=== PATIENT | female | born 2005 | race Caucasian/White ===

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

== ENCOUNTER 2025-01-18 14:21 | Inpatient (IN) | payer OTHER ==
[2025-01-18 15:39] LABS: Basophils # (A) 0.06 10*3/uL (0.00-0.10); Basophils % (A) 0.4 %; Eosinophils # (A) 0.14 10*3/uL (0.04-0.35); Eosinophils % (A) 0.9 %; HCT 31.8 % (37.2-46.3); HGB 10.7 g/dL (12.0-15.0); Immature Platelet Fraction 4.1 % (1.1-6.1); Lymphocytes # (A) 1.04 10*3/uL (0.90-5.00); Lymphocytes % (A) 6.8 %; MCH 29.6 pg (27.0-32.0); MCHC 33.6 g/dL (32.0-37.0); MCV 87.8 fL (80.0-97.0); Mean Platelet Volume 9.9 fL (9.5-12.2); Monocytes # (A) 1.34 10*3/uL (0.20-1.00); Monocytes % (A) 8.8 %; Neutrophils % (A) 82.1 %; Platelet Count 123 10*3/uL (140-440); RBC 3.62 10*6/uL (4.10-5.20); RDW 14.3 % (11.5-14.5); WBC 15.23 10*3/uL (4.50-10.00)
[2025-01-18 15:41] LABS: ALT 86 U/L (4-34); AST 165 U/L (14-36); African American GFR (CKD) >90 (>60 ml/min/1.73 sqM); Blood Urea Nitrogen 11 mg/dL (7-17); LDH 429 U/L (120-246); Non-African American GFR(CKD) >90 (>60 ml/min/1.73 sqM); Uric Acid 5.2 mg/dL (3.7-7.4)
[2025-01-18 15:56] LABS: Creatinine,Urine Random 139.5 mg/dL; Protein/Creatinine Ratio,Urine 0.115
[2025-01-18 15:58] LABS: Amorphous Sediment,Urine Occasional /hpf; Appearance,Urine Cloudy (Clear); Bacteria,Urine Rare /hpf; Bilirubin,Urine Negative (Negative); Blood,Urine Large (Negative); Color,Urine Yellow; Glucose,Urine (UA) Negative (Negative); Ketones,Urine Negative (Negative); Leukocyte Esterase,Urine Small (Negative); Mucus,Urine Occasional /hpf; Nitrite,Urine Negative (Negative); Protein,Urine 1+ (Negative); RBC,Urine >182 /hpf (0-5); Specific Gravity,Urine 1.021 (1.001-1.035); Squamous Epithelial Cell,Urine 7 /hpf (0-4); Urobilinogen,Urine <2.0 mg/dL (<2.0); WBC,Urine 11 /hpf (0-5)
[2025-01-18] MEDS ORDERED: TRANEXAMIC 1,000 MG/100ML-NACL 1,000 MG in EMPTY BAG 1 BAG IV PRN (16:07)
[2025-01-18] MEDS ORDERED: miSOPROStoL 200 MCG TAB PO PRN (16:07)
[2025-01-18] MEDS ORDERED: OXYTOCIN 10 UNIT/ML 1 ML VIAL IM PRN (16:07)
[2025-01-18] MEDS ORDERED: miSOPROStoL 200 MCG TAB RECTAL PRN (16:07)
[2025-01-18] MEDS ORDERED: CARBOPROST TROMETHAMINE 250 MCG/ML 1 ML AMP IM PRN (16:07)
[2025-01-18] MEDS ORDERED: METHYLERGONOVINE 0.2 MG/ML 1 ML AMP IM PRN (16:07)
[2025-01-18] MEDS ORDERED: TERBUTALINE 1 MG/ML VIAL SQ PRN (16:07)
[2025-01-18] MEDS ORDERED: NALBUPHINE 10 MG/ML (10 ML MDV) IV PRN (16:33)
[2025-01-18] MEDS: LACTATED RINGERS 1,000 ML IV SCH (16:35)
[2025-01-18] MEDS ORDERED: hydrALAZINE HCL 20 MG/ML 1 ML VIAL IVP PRN (16:42)
[2025-01-18] MEDS ORDERED: CALCIUM GLUCONATE 1 GM/10 ML VIAL IV PRN (16:42)
[2025-01-18] MEDS ORDERED: LABETALOL 5 MG/ML VIAL MDV IVP PRN ×3 (16:42)
[2025-01-18] MEDS: OXYTOCIN 30 UNITS/500 ML NS 30 UNIT in SALINE 1 500ML.BAG IV SCH (16:45)
[2025-01-18 16:54] LABS: INR 0.9 (<1.2); Partial Thromboplastin Time 23.5 sec (22.0-30.0); Prothrombin Time 9.8 sec (10.0-12.5)
[2025-01-18 16:58] LABS: Amphetamine Screen,Urine Not Detected (NotDetected); Barbiturate Screen,Urine Not Detected (NotDetected); Benzodiazepines Screen,Urine Not Detected (NotDetected); Cocaine Screen,Urine Not Detected (NotDetected); Methadone Screen, Urine Not Detected (NotDetected); Opiate Screen,Urine Not Detected (NotDetected); Oxycodone Screen, Urine Not Detected (NotDetected); Phencyclidine Screen,Urine Not Detected (NotDetected); Tricyclic Antidepressant,Urine Not Detected (NotDetected); Urn Cannabinoid Scrn Not Detected (NotDetected)
[2025-01-18] MEDS: MAGNESIUM SULFATE-WATER PMX 4 GM in WATER FOR INJECTION 1 100ML.BAG IVPB ONE (16:59)
[2025-01-18] MEDS: MAGNESIUM SULFATE-WATER PMX 20 GM in WATER FOR INJECTION 1 500ML.BAG IV SCH (17:23)
[2025-01-18] MEDS ORDERED: ROPIVACAINE 5 MG/ML 30 ML VIAL ONE (17:45)
[2025-01-18] MEDS ORDERED: SODIUM CHLORIDE 0.9% 250 ML BAG ONE (17:45)
[2025-01-18] MEDS ORDERED: fentaNYL (PF) 50 MCG/ML 5 ML AMP ONE (17:45)
--- NOTE | 2025-01-19 00:27 | P.MSEPDOC ---
Presenting Problems - Arrival Data Date of Arrival on Unit: 01/18/25 Time of Arrival on Unit: 14:21 Mode of Transport: Ambulatory - Complaint OB-Reason for Admission/Chief Complaint: Pain Comment: right upper quad pain and nausea Medical History - Information : 1 Para: 0 Term: 0 : 0 Abortions: Spontaneous or Elective: 0 Number of Living Children: 0 - Gestational Age Gestational Age by CHAITANYA (wks/days): 39 Weeks and 0 Days Review of Systems - Review of Systems Constitutional: No problems Breast: No problems ENT: No problems Cardiovascular: No problems Respiratory: No problems Gastrointestinal: No problems Genitourinary: No problems Musculoskeletal: No problems Neurological: No problems Skin: No problems Vital Signs - Temperature Temperature: 97.8 F Temperature Source: Temporal Artery Scan - Pulse Pulse Oximetery Pulse Rate: 101 Pulse Assessment Method: Pulse Oximetry - Respirations Respiratory Rate: 16 Oxygen Delivery Method: Room Air O2 Sat by Pulse Oximetry: 100 - Blood Pressure Right Arm Blood Pressure: 111/57 Blood Pressure Mean: 75 Blood Pressure Source: Automatic Cuff Medical Screen Scoring - Cervical Exam Dilation (cm): 3 Effacement (%): 50 Station: -2 Membranes: Intact - Uterine Contractions Frequency From (mins): 5 Frequency To (mins): 10 Duration From (seconds): 70 Duration To (seconds): 90 Intensity: Mild Resting: Soft to palpation - Assessment - Baby A Baseline FHR: 135 Heart Rate - NICHD Category: Category I (Normal) NST: Reactive Physician Notification - Physician Notified Physician Notified Date: 01/18/25 Physician Notified Time: 15:06 Physician: Chiquis Loyola New Order Received: Yes (admit) Maternal Triage Index - Maternal Triage Index Presenting for scheduled procedure w/no complaint: No - Stat/Priority 1 Stat Priority 1: No - Urgent/Priority 2 Urgent Priority 2: Yes Provider Notified: Chiquis Loyola Provider Notified Time: 15:06 Criteria Met for Priority 2: BP 130/90's presents for epigastric pain and nausea Disposition - Disposition OB Disposition: Admit Transferred to:: 10 I agree with the RN Medical Screening Exam: Yes Case reviewed; plan agreed upon as documented in EMR&OBIX.: Yes Diagnosis: RELATED CONDITIONS, UNSPECIFIED, THIRD TRIMESTER
[2025-01-19] MEDS ORDERED: HYDROCORTISONE 2.5% RECTAL CREAM 30 GM TUBE RECTAL PRN (02:33)
[2025-01-19] MEDS ORDERED: diphenhydrAMINE 50 MG/ML 1 ML VIAL IVP PRN ×2 (02:33)
[2025-01-19] MEDS ORDERED: LANOLIN CREAM 1 GM TUBE TOPICAL PRN (02:33)
[2025-01-19] MEDS ORDERED: ZOLPIDEM 5 MG TAB PO PRN (02:33)
[2025-01-19] MEDS ORDERED: diphenhydrAMINE 25 MG CAP PO PRN (02:33)
[2025-01-19] MEDS ORDERED: diphenhydrAMINE 50 MG CAP PO PRN (02:33)
--- NOTE | 2025-01-19 02:37 | P.PROBDLV ---
Vaginal Delivery Note - . Vaginal Delivery Note: 19-year-old 1 para 0 that presented to labor and delivery at 39 0/7 weeks with complaints of epigastric pain. Patient was diagnosed with preeclampsia, help syndrome in triage after elevated liver function tests were appreciated platelets slightly low at 123. Blood pressures 130s over 90s. Patient was admitted to labor and delivery and Pitocin augmentation of labor was begun. Amniotomy was performed with copious clear fluid was obtained. Patient made good progress in labor eventually requesting epidural. Patient progressed to complete began pushing and had a normal spontaneous vaginal delivery of a viable male at 220, weight of 6 pounds 11 ounces. Apgars of 8 and 9 at 1 and 5 minutes respectively. Umbilical cord was doubly clamped and cut placenta was delivered spontaneously intact with a three-vessel cord being noted. On inspection of the patient's vaginal vault second-degree midline laceration was appreciated and repaired in the usual fashion with 3-0 Rapide. After closure hemostasis was appreciated. Uterus was noted to be firm below the umbilicus. All counts were noted be correct x 2 at the end of the delivery. Patient and tolerated delivery well and are resting comfortably. Minimal urine output was noted during pushing as Maurice remains in place, 500 cc bolus of LR was initiated, repeat preeclampsia labs at 5 AM.
--- NOTE | 2025-01-19 02:38 | P.HPOB ---
History of Present Illness H&P Date: 01/18/25 Chief Complaint: IUP at 39-0/7 weeks, preeclampsia, help syndrome 19-year-old 1 para 0 at 39-0/7 weeks that presented to labor and delivery this afternoon with complaints of epigastric pain. Patient denied headache. slightly elevated blood pressures were appreciated 130s over 90s. Preeclampsia labs were completed with noted elevation of liver function test. A ST 165, ALT 86. patient does note good movements, denies vaginal bleeding, loss of fluid, occasional contractions are appreciated. Patient has been receiving routine care which has been essentially uncomplicated, no elevated blood pressures have been appreciated thus far in the . On blood work this patient is a blood type of O+, rubella status immune, hepatitis B surface antigen negative, HIV negative, hepatitis C negative, RPR nonreactive, group beta strep culture negative. Review of Systems Constitutional: Denies chills, Denies fatigue, Denies fever Ears, nose, mouth and throat: Denies headache Cardiovascular: Denies edema Respiratory: Denies dyspnea Gastrointestinal: Reports as per HPI Genitourinary: Reports Past Medical History History of Any Multi-Drug Resistant Organisms: None Reported Smoking Status: Former smoker - Past Family History Mother Additional Family Medical History / Comment(s): factor 5 Medications and Allergies Home Medications Medication Instructions Recorded Confirmed Type Vit No.179/Iron/Folic 1 tab PO DAILY 01/18/25 01/18/25 History [ Tablet] Allergies Allergy/AdvReac Type Severity Reaction Status Date / Time No Known Allergies Allergy Verified 01/18/25 14:52 Exam Osteopathic Statement: *. No significant issues noted on an osteopathic structural exam other than those noted in the History and Physical/Consult. Intake and Output 01/18/25 01/18/25 01/18/25 06:59 14:59 22:59 Other: Weight 85.729 kg Targeted physical exam is performed in general this is a well-nourished well- developed female in no acute distress, patient resting comfortably and laughing in bed. Breathing appears nonlabored, abdomen is gravid, cervical exam is heart tones are noted to be category 1 and she is mratha every 2 to 4 minutes Results Result Diagrams: 01/18/25 15:17 01/18/25 15:17 Abnormal Lab Results - Last 24 Hours (Table) 01/18/25 01/18/25 01/18/25 Range/Units 15:11 15:17 15:17 WBC 15.23 H (4.50-10.00) 10*3/uL RBC 3.62 L (4.10-5.20) 10*6/uL Hgb 10.7 L (12.0-15.0) g/dL Hct 31.8 L (37.2-46.3) % Plt Count 123 L (140-440) 10*3/uL Immature Gran # 0.15 H (0.00-0.04) 10*3/uL Neutrophils # 12.50 H (1.80-7.70) 10*3/uL Monocytes # 1.34 H (0.20-1.00) 10*3/uL AST 165 H (14-36) U/L ALT 86 H (4-34) U/L Lactate Dehydrogenase 429 H (120-246) U/L Urine Appearance Cloudy H (Clear) Urine Protein 1+ H (Negative) Urine Blood Large H (Negative) Ur Leukocyte Esterase Small H (Negative) Urine RBC >182 H (0-5) /hpf Urine WBC 11 H (0-5) /hpf Ur Squamous Epith Cells 7 H (0-4) /hpf Amorphous Sediment Occasional H (None) /hpf Urine Bacteria Rare H (None) /hpf Urine Mucus Occasional H (None) /hpf Assessment and Plan (1) Term Current Visit: Yes Status: Acute Code(s): Z34.90 - ENCNTR FOR SUPRVSN OF NORMAL , UNSP, UNSP TRIMESTER SNOMED Code(s): 01922761 (2) Preeclampsia Current Visit: Yes Status: Acute Code(s): O14.90 - UNSPECIFIED PRE- ECLAMPSIA, UNSPECIFIED TRIMESTER SNOMED Code(s): 486732045 (3) HELLP syndrome Current Visit: Yes Status: Acute Code(s): O14.20 - HELLP SYNDROME (HELLP), UNSPECIFIED TRIMESTER SNOMED Code(s): 29212549 Plan: Admit to labor and delivery Magnesium GTT 4 g bolus followed by 2 g maintenance, Maurice to be placed to gravity Amniotomy/Pitocin for augmentation of labor N.p.o. Options for analgesia discussed Nubain, nitrous, epidural when appropriate, platelets 123
[2025-01-19] MEDS: BENZOCAINE/MENTHOL SPRAY 1 GM/SPRAY AEROSOL TOPICAL PRN (02:47)
[2025-01-19] MEDS: LIDOCAINE 0.5% (PF) 5 MG/ML (50 ML SDV) SQ PRN (02:48)
[2025-01-19] MEDS: IBUPROFEN 800 MG TAB PO SCH (04:03)
[2025-01-19] MEDS: ACETAMINOPHEN TAB 500 MG TAB PO SCH (04:04)
[2025-01-19 06:20] LABS: INR 0.8 (<1.2); Partial Thromboplastin Time 24.5 sec (22.0-30.0); Prothrombin Time 9.6 sec (10.0-12.5)
[2025-01-19 06:23] LABS: AST 147 U/L (14-36); African American GFR (CKD) >90 (>60 ml/min/1.73 sqM); Blood Urea Nitrogen 9 mg/dL (7-17); Non-African American GFR(CKD) >90 (>60 ml/min/1.73 sqM); Uric Acid 5.3 mg/dL (3.7-7.4)
[2025-01-19 06:30] LABS: ALT 89 U/L (4-34)
[2025-01-19 07:24] LABS: Basophils # (A) 0.08 10*3/uL (0.00-0.10); Basophils % (A) 0.5 %; Eosinophils # (A) 0.07 10*3/uL (0.04-0.35); Eosinophils % (A) 0.4 %; HCT 29.5 % (37.2-46.3); HGB 9.8 g/dL (12.0-15.0); Lymphocytes # (A) 1.21 10*3/uL (0.90-5.00); Lymphocytes % (A) 7.5 %; MCH 29.2 pg (27.0-32.0); MCHC 33.2 g/dL (32.0-37.0); MCV 87.8 fL (80.0-97.0); Mean Platelet Volume 10.3 fL (9.5-12.2); Monocytes # (A) 1.18 10*3/uL (0.20-1.00); Monocytes % (A) 7.3 %; Neutrophils # (A) 13.29 10*3/uL (1.80-7.70); Neutrophils % (A) 82.7 %; Platelet Count 92 10*3/uL (140-440); RBC 3.36 10*6/uL (4.10-5.20); RDW 14.7 % (11.5-14.5); WBC 16.09 10*3/uL (4.50-10.00)
[2025-01-19] MEDS: PRENATAL VIT-IRON-FOLIC ACID 1 EACH TABLET PO SCH (08:08)
[2025-01-19] MEDS: SENNOSIDES-DOCUSATE SODIUM 1 EACH TAB PO SCH (08:08)
--- NOTE | 2025-01-19 12:05 | P.PNOBGVD ---
Subjective - Subjective Principal diagnosis: day 0, preeclampsia, hellp syndrome Interval history: Patient is doing well overall. Maurice catheter remains, draining clear yellow urine. Patient states pain is well-controlled, lochia is noted to be minimal to moderate. Labs reviewed this morning liver function tests noted to be stable/decreasing, platelets did decrease from 123-98. Patient reports: Reports appetite normal, Reports pain well controlled [place]: doing well Objective - Latest Vital Signs Latest vital signs: Vital Signs Temp Pulse Resp BP Pulse Ox 01/19/25 11:00 93 16 121/86 97 01/19/25 10:00 99 15 129/84 99 01/19/25 09:00 104 H 16 136/90 01/19/25 08:00 97.0 F L 115 H 16 133/89 98 01/19/25 07:00 115 H 18 146/93 99 01/19/25 06:00 111 H 18 136/94 97 01/19/25 04:59 95 18 142/87 100 01/19/25 04:31 97 18 146/96 98 01/19/25 04:16 104 H 16 149/99 97 01/19/25 04:01 100 16 145/93 98 01/19/25 03:46 101 H 18 137/88 98 01/19/25 03:31 97 18 137/85 99 01/19/25 03:16 99 16 148/98 100 01/19/25 03:01 102 H 16 137/87 100 01/19/25 02:46 105 H 18 130/82 100 01/19/25 02:31 98.2 F 106 H 16 136/80 99 01/19/25 02:00 111 H 16 123/82 97 01/19/25 01:00 109 H 16 127/76 99 01/19/25 00:27 97.8 F 101 H 16 111/57 100 01/19/25 00:00 127 H 16 124/90 100 01/18/25 23:00 97.8 F 101 H 16 111/57 100 01/18/25 22:00 110 H 16 118/77 97 01/18/25 21:00 115 H 16 121/69 98 01/18/25 20:00 91 16 120/69 01/18/25 19:27 93 115/68 01/18/25 18:27 96 128/78 01/18/25 17:57 94 130/81 01/18/25 17:27 95 126/72 01/18/25 17:12 94 16 138/85 01/18/25 16:57 106 H 18 137/84 01/18/25 16:42 112 H 18 148/83 01/18/25 16:23 98.4 F 98 16 128/94 98 01/18/25 14:52 98.4 F 98 16 128/94 98 Intake and Output 01/18/25 01/19/25 01/19/25 22:59 06:59 14:59 Intake Total 1386.267 300 Output Total 205 660 500 Balance -205 726.267 -200 Intake: Intake, IV Titration 1186.267 300 Amount Lactated Ringers 1,000 ml 500 300 @ 125 mls/hr IV .Q8H SAÚL Rx#:[id number] Magnesium Sulfate-Water 500 Pmx 20 gm In Water For Injection 1 500ml.bag @ 2 GM/HR 50 mls/hr IV .Q10H SAÚL Rx#:[id number] Oxytocin 30 Units/500 ml 186.267 Ns 30 unit In Saline 1 500ml.bag @ Per Protocol IV .Q0M SAÚL Rx#:[id number] Oral 200 Output: Urine 205 520 500 Output, Quantitative 140 Blood Loss Other: Voiding Method Indwelling Catheter Indwelling Catheter Weight 85.729 kg - Exam Lungs: bilateral: normal Extremities: Present: normal, edema Abdomen: Present: normal appearance, soft Uterus: Present: normal, firm - Labs Labs: Abnormal Lab Results - Last 24 Hours (Table) 01/18/25 01/18/25 01/18/25 Range/Units 15:11 15:17 15:17 WBC 15.23 H (4.50-10.00) 10*3/uL RBC 3.62 L (4.10-5.20) 10*6/uL Hgb 10.7 L (12.0-15.0) g/dL Hct 31.8 L (37.2-46.3) % Plt Count 123 L (140-440) 10*3/uL Immature Gran # 0.15 H (0.00-0.04) 10*3/uL Neutrophils # 12.50 H (1.80-7.70) 10*3/uL Monocytes # 1.34 H (0.20-1.00) 10*3/uL PT (10.0-12.5) sec AST 165 H (14-36) U/L ALT 86 H (4-34) U/L Lactate Dehydrogenase 429 H (120-246) U/L Urine Appearance Cloudy H (Clear) Urine Protein 1+ H (Negative) Urine Blood Large H (Negative) Ur Leukocyte Esterase Small H (Negative) Urine RBC >182 H (0-5) /hpf Urine WBC 11 H (0-5) /hpf Ur Squamous Epith Cells 7 H (0-4) /hpf Amorphous Sediment Occasional H (None) /hpf Urine Bacteria Rare H (None) /hpf Urine Mucus Occasional H (None) /hpf 01/18/25 01/19/25 01/19/25 Range/Units 16:30 05:41 05:46 WBC (4.50-10.00) 10*3/uL RBC (4.10-5.20) 10*6/uL Hgb (12.0-15.0) g/dL Hct (37.2-46.3) % Plt Count (140-440) 10*3/uL Immature Gran # (0.00-0.04) 10*3/uL Neutrophils # (1.80-7.70) 10*3/uL Monocytes # (0.20-1.00) 10*3/uL PT 9.8 L 9.6 L (10.0-12.5) sec AST 147 H (14-36) U/L ALT 89 H (4-34) U/L Lactate Dehydrogenase (120-246) U/L Urine Appearance (Clear) Urine Protein (Negative) Urine Blood (Negative) Ur Leukocyte Esterase (Negative) Urine RBC (0-5) /hpf Urine WBC (0-5) /hpf Ur Squamous Epith Cells (0-4) /hpf Amorphous Sediment (None) /hpf Urine Bacteria (None) /hpf Urine Mucus (None) /hpf 01/19/25 Range/Units 05:49 WBC 16.09 H (4.50-10.00) 10*3/uL RBC 3.36 L (4.10-5.20) 10*6/uL Hgb 9.8 L (12.0-15.0) g/dL Hct 29.5 L (37.2-46.3) % Plt Count 92 L (140-440) 10*3/uL Immature Gran # 0.26 H (0.00-0.04) 10*3/uL Neutrophils # 13.29 H (1.80-7.70) 10*3/uL Monocytes # 1.18 H (0.20-1.00) 10*3/uL PT (10.0-12.5) sec AST (14-36) U/L ALT (4-34) U/L Lactate Dehydrogenase (120-246) U/L Urine Appearance (Clear) Urine Protein (Negative) Urine Blood (Negative) Ur Leukocyte Esterase (Negative) Urine RBC (0-5) /hpf Urine WBC (0-5) /hpf Ur Squamous Epith Cells (0-4) /hpf Amorphous Sediment (None) /hpf Urine Bacteria (None) /hpf Urine Mucus (None) /hpf Assessment and Plan (1) Term Current Visit: Yes Status: Acute Code(s): Z34.90 - ENCNTR FOR SUPRVSN OF NORMAL , UNSP, UNSP TRIMESTER SNOMED Code(s): 74280776 (2) Preeclampsia Current Visit: Yes Status: Acute Code(s): O14.90 - UNSPECIFIED PRE- ECLAMPSIA, UNSPECIFIED TRIMESTER SNOMED Code(s): 957064844 (3) HELLP syndrome Current Visit: Yes Status: Acute Code(s): O14.20 - HELLP SYNDROME (HELLP), UNSPECIFIED TRIMESTER SNOMED Code(s): 08013579 (4) Status post normal vaginal delivery Current Visit: Yes Status: Acute Code(s): DEG3446 - SNOMED Code(s): 626755353 Plan: Patient is doing well . Stable HELLP labs, plan to repeat at 1730 If labs remain stable, discontinue magnesium at that time. Maintain Maurice for 2 hours after discontinuation of magnesium GTT.
[2025-01-19] MEDS: LABETALOL 100 MG TAB PO SCH (12:27)
[2025-01-19] MEDS: SIMETHICONE 80 MG CHEWABLE PO PRN (14:02)
[2025-01-19 17:34] LABS: Basophils # (A) 0.06 10*3/uL (0.00-0.10); Basophils % (A) 0.4 %; Eosinophils # (A) 0.15 10*3/uL (0.04-0.35); Eosinophils % (A) 1.1 %; HCT 29.7 % (37.2-46.3); HGB 9.9 g/dL (12.0-15.0); Lymphocytes # (A) 1.71 10*3/uL (0.90-5.00); Lymphocytes % (A) 12.4 %; MCH 29.6 pg (27.0-32.0); MCHC 33.3 g/dL (32.0-37.0); MCV 88.9 fL (80.0-97.0); Mean Platelet Volume 9.9 fL (9.5-12.2); Monocytes % (A) 6.5 %; Neutrophils # (A) 10.77 10*3/uL (1.80-7.70); Neutrophils % (A) 78.4 %; Platelet Count 100 10*3/uL (140-440); RBC 3.34 10*6/uL (4.10-5.20); RDW 14.7 % (11.5-14.5); WBC 13.76 10*3/uL (4.50-10.00)
[2025-01-19 17:43] LABS: Uric Acid 5.1 mg/dL (3.7-7.4)
--- NOTE | 2025-01-20 08:49 | P.PNOBGVD ---
Subjective - Subjective Principal diagnosis: day #2, preeclampsia, HELLP syndrome Interval history: Patient is overall feeling well. She has had some borderline blood pressures 130s to 140s over 90s. Patient denies signs or symptoms of preeclampsia. She states lochia is minimal to moderate. She is breast-feeding. Patient reports: Reports appetite normal, Reports voiding normally, Reports pain well controlled, Reports ambulating normally [place]: doing well Objective - Latest Vital Signs Latest vital signs: Vital Signs Temp Pulse Resp BP Pulse Ox 01/20/25 07:57 97.9 F 84 18 132/91 97 01/20/25 00:00 98.2 F 84 16 131/86 01/19/25 20:40 98.1 F 80 16 137/86 01/19/25 18:00 87 16 136/84 99 01/19/25 17:00 98.2 F 80 16 123/87 100 01/19/25 16:00 89 16 131/81 100 01/19/25 15:00 96 16 126/89 96 01/19/25 14:00 93 16 119/82 100 01/19/25 13:00 98 16 138/97 99 01/19/25 12:00 97.9 F 92 16 143/103 100 01/19/25 11:00 93 16 121/86 97 01/19/25 10:00 99 15 129/84 99 01/19/25 09:00 104 H 16 136/90 Intake and Output 01/19/25 01/20/25 01/20/25 22:59 06:59 14:59 Intake Total 425.833 500 Output Total 1500 900 Balance -1074.167 -400 Intake: Intake, IV Titration 425.833 Amount Lactated Ringers 1,000 ml 225 @ 125 mls/hr IV .Q8H SAÚL Rx#:[id number] Magnesium Sulfate-Water 200.833 Pmx 20 gm In Water For Injection 1 500ml.bag @ 2 GM/HR 50 mls/hr IV .Q10H SAÚL Rx#:[id number] Oral 500 Output: Urine 1500 900 Uretheral (Maurice) 350 Other: Voiding Method Indwelling Catheter # Voids 1 Weight 80.456 kg - Exam Extremities: Present: normal, edema Abdomen: Present: normal appearance, soft Uterus: Present: normal, firm - Labs Labs: Abnormal Lab Results - Last 24 Hours (Table) 01/19/25 01/19/25 01/19/25 Range/Units 05:49 17:13 17:13 WBC 13.76 H (4.50-10.00) 10*3/uL RBC 3.34 L (4.10-5.20) 10*6/uL Hgb 9.9 L (12.0-15.0) g/dL Hct 29.7 L (37.2-46.3) % Plt Count 92 L 100 L (140-440) 10*3/uL Immature Gran # 0.17 H (0.00-0.04) 10*3/uL Neutrophils # 13.29 H 10.77 H (1.80-7.70) 10*3/uL Monocytes # 1.18 H (0.20-1.00) 10*3/uL AST 110 H (14-36) U/L ALT 85 H (4-34) U/L Assessment and Plan (1) Term Current Visit: Yes Status: Acute Code(s): Z34.90 - ENCNTR FOR SUPRVSN OF NORMAL , UNSP, UNSP TRIMESTER SNOMED Code(s): 23098573 (2) Preeclampsia Current Visit: Yes Status: Acute Code(s): O14.90 - UNSPECIFIED PRE- ECLAMPSIA, UNSPECIFIED TRIMESTER SNOMED Code(s): 653575129 (3) HELLP syndrome Current Visit: Yes Status: Acute Code(s): O14.20 - HELLP SYNDROME (HELLP), UNSPECIFIED TRIMESTER SNOMED Code(s): 61273051 (4) Status post normal vaginal delivery Current Visit: Yes Status: Acute Code(s): [id number] - SNOMED Code(s): 445346207 Plan: Doing well post . Plan preeclampsia labs this morning, monitor blood pressure closely
[2025-01-20 10:23] LABS: Basophils # (A) 0.08 10*3/uL (0.00-0.10); Basophils % (A) 0.5 %; HCT 29.7 % (37.2-46.3); HGB 9.9 g/dL (12.0-15.0); Lymphocytes # (A) 2.42 10*3/uL (0.90-5.00); Lymphocytes % (A) 16.3 %; MCH 30.3 pg (27.0-32.0); MCHC 33.3 g/dL (32.0-37.0); MCV 90.8 fL (80.0-97.0); Monocytes # (A) 1.29 10*3/uL (0.20-1.00); Monocytes % (A) 8.7 %; Neutrophils % (A) 71.4 %; Platelet Count 101 10*3/uL (140-440); RBC 3.27 10*6/uL (4.10-5.20); WBC 14.86 10*3/uL (4.50-10.00)
[2025-01-20 10:44] LABS: ALT 65 U/L (4-34); AST 63 U/L (14-36); African American GFR (CKD) >90 (>60 ml/min/1.73 sqM); Blood Urea Nitrogen 13 mg/dL (7-17); Non-African American GFR(CKD) >90 (>60 ml/min/1.73 sqM); Uric Acid 4.4 mg/dL (3.7-7.4)
[2025-01-20 17:01] VITALS: RESP 16
[2025-01-21 08:20] VITALS: BP 134/91; PULSE 93; TEMP 98.2
--- NOTE | 2025-01-21 12:09 | P.DS ---
Providers Date of admission: 01/18/25 16:04 Expected date of discharge: 01/21/25 Attending physician: Chiquis Loyola Primary care physician: Stated None - Discharge Diagnosis(es) (1) Term Current Visit: Yes Status: Acute (2) Preeclampsia Current Visit: Yes Status: Acute (3) HELLP syndrome Current Visit: Yes Status: Acute (4) Status post normal vaginal delivery Current Visit: Yes Status: Acute Hospital Course: This is a 19-year-old 1 now para 1 that presented to labor and delivery on 01/18 with complaints of epigastric pain. Patient had been receiving routine care which had been uncomplicated to this point. Patient had slightly elevated blood pressures upon admission 130s over 90s. Preeclampsia labs were performed with significant elevations of AST/ALT. Patient was admitted to labor and delivery for preeclampsia/hellp syndrome. Patient was begun on magnesium given lab changes and diagnosis of preeclampsia. Amniotomy was performed and Pitocin augmentation of labor was begun. Patient made progress with labor eventually becoming uncomfortable and requesting an epidural. Epidural was placed without difficulty by the anesthesia department. Patient made good progress for complete began pushing and had a normal spontaneous vaginal delivery of a viable male at 220 on 01/19. Weight of 6 pounds 11 ounces. Patient did sustain a second-degree midline laceration which was repaired in the usual fashion after delivery. Magnesium GTT was begun for 24 hours, urine output was noted to be good at the time of discontinuation of magnesium. Patient has done well since this time. Preeclampsia labs are noted to be trending down and normalizing. Patient states she feels well. Pressures have been stable 130s over 90s stable on labetalol 100 mg bid. She is anxious for discharge home. Patient Condition at Discharge: Good Plan - Discharge Summary New Discharge Prescriptions: No Action Vit No.179/Iron/Folic [ Tablet] 1 tab PO DAILY Discharge Medication List Vit No.179/Iron/Folic [ Tablet] 1 tab PO DAILY 01/18/25 [History] Follow up Appointment(s)/Referral(s): Chiquis Loyola DO [Doctor of Osteopathic Medicine] - 03/04/25 11:30 am Patient Instructions/Handouts: Vaginal Delivery (DC), Vaginal Delivery (GEN) Activity/Diet/Wound Care/Special Instructions: No tub baths or intercourse until 6 weeks . Oido-nef-lnvwylb ibuprofen 600 mg or 3 tablets every 6 hours as needed for pain. Labetalol 100 mg twice daily. Patient is to follow-up in 1 week for routine blood pressure c heck. Discharge Disposition: HOME SELF-CARE
== END 2025-01-21 12:30 | disposition home or self-care (01) | DRG 560 ==
LOC: FBPOP 14:21 → 4FBP 16:04
PROVIDERS: ADMIT Obstetrics & Gynecology Obstetrics; ATTEND Obstetrics & Gynecology Obstetrics
PROC: 10E0XZZ Delivery of Products of Conception, External Approach (ICD-10-PCS; principal; 2025-01-19)
PROC: 0KQM0ZZ Repair Perineum Muscle, Open Approach (ICD-10-PCS; 2025-01-19)
PROC: 10907ZC Drainage of Amniotic Fluid, Therapeutic from Products of Conception, Via Natural or Artificial Opening (ICD-10-PCS; 2025-01-19)
PROC: 3E033VJ Introduction of Other Hormone into Peripheral Vein, Percutaneous Approach (ICD-10-PCS; 2025-01-19)
DX: O14.24 HELLP syndrome, complicating childbirth (principal); O70.1 Second degree perineal laceration during delivery; Z87.891 Personal history of nicotine dependence; Z3A.39 39 weeks gestation of pregnancy; Z37.0 Single live birth
CPT/HCPCS: 59025; 80306; 81001; 82565; 82570; 83615; 84156; 84450; 84460; 84520; 84550; 85025; 85610; 85730; 86850; 86900; 86901; 88307; 99215